=== PATIENT | male | born 1950 | race African-American/Black ===

== ENCOUNTER 2022-04-12 13:01 | Inpatient (IN) | payer MEDICARE, MEDICAID ==
[~2022-04-12] VITALS: Ht 182.9 cm; Wt 83.0 kg
[2022-04-12] MEDS ORDERED: HYDR-459 PO (13:55)
[2022-04-12] MEDS ORDERED: FURO40TA5 PO (13:55)
[2022-04-12] MEDS ORDERED: MELA5TAB21 PO (13:55)
[2022-04-12] MEDS ORDERED: APIX2.5T PO (13:55)
[2022-04-12] MEDS ORDERED: DOCU-150 PO (13:55)
[2022-04-12] MEDS ORDERED: sinemet (13:55)
[2022-04-12] MEDS ORDERED: POTA-205 PO (13:55)
[2022-04-12] MEDS ORDERED: ABIL5 PO (13:55)
[2022-04-12] MEDS ORDERED: TOPA25 PO (13:55)
[2022-04-12] MEDS ORDERED: VITA400T9 PO (13:55)
[2022-04-12] MEDS ORDERED: MULT-1116 PO (13:55)
[2022-04-12] MEDS ORDERED: PROT20 PO (13:55)
[2022-04-12 15:55] LABS: BASOPHILS % 0.5 % (0.0-2.0); EOSINOPHILS % 1.9 % (0.0-5.0); HEMATOCRIT. 48.4 % (42.0-52.0); LYMPHOCYTES % 31.7 % (20.0-50.0); MEAN CORPUSCULAR HEMOGLOBIN 34.4 pg (28.0-32.0); MEAN CORPUSCULAR VOLUME 97.9 fL (80.0-94.0); MEAN PLATELET VOLUME 8.3 fl (7.4-10.4); MONOCYTES % 10.7 % (2.0-8.0); NEUTROPHILS % 55.2 % (40.0-76.0); PLATELET 130 x1000/uL (130-400); RED BLOOD CELL COUNT 4.95 mill/uL (4.7-6.1); RED CELL DISTRIBUTION WIDTH 13.8 % (11.6-14.6)
[2022-04-12 16:04] LABS: CHLORIDE 108 mEq/L (98-107)
[2022-04-13 01:30] VITALS: BP 145/88
[2022-04-13 01:45] VITALS: BP 145/88
[2022-04-13] MEDS ORDERED: DEXT 5%/0.45% NACL 1000ML 1,000 ML IV SCH (02:15)
[2022-04-13] MEDS ORDERED: CLONIDINE 0.1MG TABLET PO PRN (02:15)
[2022-04-13] MEDS ORDERED: GUAIFENESIN 200MG/10ML SUGAR FREE UDC PO PRN (02:15)
[2022-04-13] MEDS ORDERED: ONDANSETRON HCL 4MG/2ML INJ IV PRN (02:15)
[2022-04-13 05:00] VITALS: BP 142/79
[2022-04-13 08:00] VITALS: BP 102/69
[2022-04-13 10:03] LABS: VITAMIN B12 SERUM 297 pg/mL (211-911)
[2022-04-13] MEDS: FUROSEMIDE 40MG TABLET PO SCH (10:44)
[2022-04-13] MEDS: ARIPIPRAZOLE 5MG TABLET PO SCH (10:44)
[2022-04-13] MEDS: TOPIRAMATE 25MG TABLET PO SCH (10:44)
[2022-04-13] MEDS: APIXABAN 2.5 MG TABLET PO SCH ×3 (10:45→17:59)
[2022-04-13] MEDS: HYDROXYZINE 25MG TABLET PO SCH (12:56)
[2022-04-13] MEDS: FAMOTIDINE 20MG/2ML VIAL IV SCH (13:03)
[2022-04-13 16:00] VITALS: BP 126/72
[2022-04-13 20:00] VITALS: BP 99/60
[2022-04-14] VITALS: BP 104/61
[2022-04-14 04:00] VITALS: BP 113/62
[2022-04-14 08:00] VITALS: BP 129/57
[2022-04-14] MEDS: ARIPIPRAZOLE 5MG TABLET PO SCH (09:05)
[2022-04-14] MEDS: APIXABAN 2.5 MG TABLET PO SCH ×2 (09:05→17:50)
[2022-04-14] MEDS: FUROSEMIDE 40MG TABLET PO SCH (09:05)
[2022-04-14] MEDS: TOPIRAMATE 25MG TABLET PO SCH (09:05)
[2022-04-14] MEDS: FAMOTIDINE 20MG/2ML VIAL IV SCH (09:05)
[2022-04-14] MEDS: HYDROXYZINE 25MG TABLET PO SCH (09:05)
[2022-04-14 09:06] LABS: T4 FREE 1.27 ng/dL (0.76-1.46)
[2022-04-14 09:11] LABS: FOLATE HEMATOCRIT 48.1 % (37.5-51.0)
[2022-04-14 12:00] VITALS: BP 117/65
[2022-04-14 12:12] LABS: BASOPHILS % 0.6 % (0.0-2.0); EOSINOPHILS % 2.5 % (0.0-5.0); HEMATOCRIT. 46.5 % (42.0-52.0); LYMPHOCYTES % 28.3 % (20.0-50.0); MEAN CORPUSCULAR HEMOGLOBIN 33.9 pg (28.0-32.0); MEAN CORPUSCULAR VOLUME 98.5 fL (80.0-94.0); MEAN PLATELET VOLUME 8.7 fl (7.4-10.4); MONOCYTES % 12.2 % (2.0-8.0); NEUTROPHILS % 56.4 % (40.0-76.0); PLATELET 117 x1000/uL (130-400); RED BLOOD CELL COUNT 4.72 mill/uL (4.7-6.1); RED CELL DISTRIBUTION WIDTH 13.9 % (11.6-14.6)
[2022-04-14 12:19] LABS: CHLORIDE 109 mEq/L (98-107)
[2022-04-14 12:29] LABS: CLARITY URINE CLEAR (CLEAR); COLOR URINE YELLOW (YELLOW); KETONES URINE NEGATIVE (NEGATIVE); LEUKOCYTE ESTERASE URINE 3+ (NEGATIVE); NITRITE URINE NEGATIVE (NEGATIVE); OCCULT BLOOD URINE 1+ (NEGATIVE); PH URINE 6.5 (4.5-8.0); PROTEIN URINE NEGATIVE (NEGATIVE); SPECIFIC GRAVITY URINE 1.006 (1.005-1.030)
[2022-04-14 16:00] VITALS: BP 127/67
[2022-04-14 20:00] VITALS: BP 111/64
[2022-04-15] VITALS: BP 115/65
[2022-04-15 04:00] VITALS: BP 126/78
[2022-04-15 08:00] VITALS: BP 104/65
[2022-04-15] MEDS: FUROSEMIDE 40MG TABLET PO SCH (08:32)
[2022-04-15] MEDS: ARIPIPRAZOLE 5MG TABLET PO SCH (08:32)
[2022-04-15] MEDS: APIXABAN 2.5 MG TABLET PO SCH (08:33)
[2022-04-15] MEDS: HYDROXYZINE 25MG TABLET PO SCH (08:33)
[2022-04-15] MEDS: TOPIRAMATE 25MG TABLET PO SCH (08:33)
[2022-04-15] MEDS ORDERED: FAMOTIDINE 20MG TABLET PO SCH (09:00)
[2022-04-15] MEDS ORDERED: NITROFURANTOIN 100MG M/M CAPSULE PO SCH (10:00)
[2022-04-15 11:15] VITALS: BP 104/65
[2022-04-15 12:00] VITALS: BP 115/59
[2022-04-16 09:10] LABS: FOLATE RBC 751 ng/mL (>498)
== END 2022-04-15 14:20 | DRG 689 ==
LOC: ER 13:01 → MICUSO 19:45 → EDBEDREQTM 20:07 → EDBEDREQ 20:07 → 6EST 04-13 02:02
PROVIDERS: ADMIT Hospitalist; ATTEND Hospitalist
DX: N39.0 Urinary tract infection, site not specified (principal); G93.41 Metabolic encephalopathy; I82.412 Acute embolism and thrombosis of left femoral vein; R62.7 Adult failure to thrive; E11.9 Type 2 diabetes mellitus without complications; Z20.822 Contact with and (suspected) exposure to COVID-19; G40.909 Epilepsy, unspecified, not intractable, without status epilepticus; F02.80 Dementia in other diseases classified elsewhere, unspecified severity, without behavioral disturbance, psychotic disturbance, mood disturbance, and anxiety; I50.9 Heart failure, unspecified; I25.10 Atherosclerotic heart disease of native coronary artery without angina pectoris; F31.9 Bipolar disorder, unspecified; K21.9 Gastro-esophageal reflux disease without esophagitis; Z79.899 Other long term (current) drug therapy; Z68.24 Body mass index [BMI] 24.0-24.9, adult; Z79.01 Long term (current) use of anticoagulants; Z86.73 Personal history of transient ischemic attack (TIA), and cerebral infarction without residual deficits
CPT/HCPCS: 36415; 80053; 81003; 82607; 82747; 83036; 83880; 84145; 84439; 84443; 85014; 85025; 87426; 93005; 93880; 97162; 97166; 99285; J3490